=== PATIENT | female | born 1945 | race African-American/Black ===

== ENCOUNTER → 2017-01-28 | Outpatient (CLI) | payer MEDICARE, OTHER | LOC: HEART 5 08:45 | DX: I20.8 Other forms of angina pectoris (principal); R06.09 Other forms of dyspnea; I10 Essential (primary) hypertension; E78.5 Hyperlipidemia, unspecified | CPT/HCPCS: 78452; 93017; A9502; J2785 ==

== ENCOUNTER → 2017-03-27 | Outpatient (CLI) | payer MEDICARE, OTHER | LOC: KOH-I 11:56 | DX: F03.90 Unspecified dementia, unspecified severity, without behavioral disturbance, psychotic disturbance, mood disturbance, and anxiety (principal); R26.0 Ataxic gait; R51 Headache; G31.9 Degenerative disease of nervous system, unspecified | CPT/HCPCS: 70551 ==

== ENCOUNTER → 2020-12-23 | Outpatient (CLI) | payer MEDICARE, OTHER ==
[~2020-12-23] MED LIST: AZELASTINE SPRAY; AZELASTINE137 MCG/0.; CETIRIZINE HCL10 MG PO; CLONIDINE HCL0.1 MG PO; CYCLOBENZAPRINE5 MG PO; EFFEXOR XR 75 M75 MG PO; FISH OIL 1,0001 EAC3 PO; FLONASE 0.05% N16 GM; GABAPENTIN300 MG PO; LATANOPROST2.5 ML OP; LEXAPRO10 MG PO; LINZESS290 MCG PO; LIPITOR TAB 2020 MG PO; LISINOPRIL10 MG PO; MIRALAX17 GM PO; PAMELOR10 MG PO; PERCOCET 7.5-31 EACH PO; PRINIVIL10 MG PO; RABEPRAZOLE SOD20 MG PO; SYNTHROID75 MCG PO; TYLENOL W/CODEIN1 E1 PO; VENLAFAXINE HCL75 M2 PO; VITAMIN D32000 UNI1 PO; VITAMIN E400 UNI4 PO; ZANTAC150 MG PO
== END ==
LOC: KOH-I 15:39
DX: M25.561 Pain in right knee (principal); M25.562 Pain in left knee; M17.0 Bilateral primary osteoarthritis of knee
CPT/HCPCS: 73562

== ENCOUNTER → 2020-12-28 | Outpatient (CLI) | payer MEDICARE, OTHER | LOC: MAMO 09:54 | DX: Z12.31 Encounter for screening mammogram for malignant neoplasm of breast (principal); Z80.3 Family history of malignant neoplasm of breast | CPT/HCPCS: 77063; 77067 ==

== ENCOUNTER → 2021-01-03 | Day surgery (SDC) | payer MEDICARE, OTHER ==
[~2021-01-03] VITALS: Ht 157.5 cm; Wt 58.1 kg
== END | disposition home or self-care (01) ==
LOC: OR 07:45
DX: K21.00 Gastro-esophageal reflux disease with esophagitis, without bleeding (principal); K29.50 Unspecified chronic gastritis without bleeding; K22.8 Other specified diseases of esophagus; K31.9 Disease of stomach and duodenum, unspecified; K59.09 Other constipation; K58.9 Irritable bowel syndrome, unspecified; G62.9 Polyneuropathy, unspecified; E78.5 Hyperlipidemia, unspecified; I10 Essential (primary) hypertension; R73.03 Prediabetes; E66.3 Overweight; Z68.27 Body mass index [BMI] 27.0-27.9, adult; Z87.891 Personal history of nicotine dependence; Z79.899 Other long term (current) drug therapy; Z79.890 Hormone replacement therapy; Z86.010 Personal history of colon polyps; Z79.891 Long term (current) use of opiate analgesic; E78.00 Pure hypercholesterolemia, unspecified; Z90.710 Acquired absence of both cervix and uterus; Z98.890 Other specified postprocedural states
CPT/HCPCS: J2704; J7040

== ENCOUNTER → 2021-01-24 | Outpatient (CLI) | payer MEDICARE, OTHER | LOC: MRI 11:00 → KOH-I 13:45 | DX: M25.562 Pain in left knee (principal); M67.864 Other specified disorders of tendon, left knee; M25.462 Effusion, left knee | CPT/HCPCS: 73721 ==

== ENCOUNTER → 2021-03-17 | Outpatient (CLI) | payer MEDICARE, OTHER | LOC: KOH-I 13:27 | DX: R22.1 Localized swelling, mass and lump, neck (principal) | CPT/HCPCS: 76536 ==

== ENCOUNTER → 2021-04-18 | Outpatient (CLI) | payer MEDICARE, OTHER | LOC: CT 13:40 | DX: R22.1 Localized swelling, mass and lump, neck (principal); M47.812 Spondylosis without myelopathy or radiculopathy, cervical region | CPT/HCPCS: 36415; 70491; 82565; 84520; Q9963 ==

== ENCOUNTER → 2021-05-25 | Day surgery (SDC) | payer MEDICARE, OTHER | END | disposition home or self-care (01) | LOC: OR 06:46 | DX: R31.29 Other microscopic hematuria (principal); Z85.51 Personal history of malignant neoplasm of bladder; Z87.891 Personal history of nicotine dependence; M54.9 Dorsalgia, unspecified; M54.2 Cervicalgia; G89.29 Other chronic pain; Z88.8 Allergy status to other drugs, medicaments and biological substances; E78.5 Hyperlipidemia, unspecified; E03.9 Hypothyroidism, unspecified; Z08 Encounter for follow-up examination after completed treatment for malignant neoplasm; Z20.822 Contact with and (suspected) exposure to COVID-19 | CPT/HCPCS: J7040; U0003 ==

== ENCOUNTER → 2021-05-29 | Outpatient (CLI) | payer MEDICARE, OTHER | LOC: RAD 07:59 | DX: R09.89 Other specified symptoms and signs involving the circulatory and respiratory systems (principal) | CPT/HCPCS: 74230; 92611-GN ==

== ENCOUNTER → 2021-10-12 | Outpatient (CLI) | payer MEDICARE, OTHER | LOC: LAB 14:15 | DX: R22.2 Localized swelling, mass and lump, trunk (principal) | CPT/HCPCS: 71046 ==

== ENCOUNTER → 2021-10-18 | Outpatient (CLI) | payer MEDICARE, OTHER ==
[2021-10-18 13:18] LABS: BUN/CREATININE RATIO 19 (0-10)
== END ==
LOC: OPSV2 11:30
PROVIDERS: Anesthesiology
DX: Z01.812 Encounter for preprocedural laboratory examination (principal); M67.432 Ganglion, left wrist
CPT/HCPCS: 36415; 80048

== ENCOUNTER → 2021-11-03 | Outpatient (CLI) | payer MEDICARE, OTHER | LOC: CT 12:37 | DX: J98.6 Disorders of diaphragm (principal); R93.89 Abnormal findings on diagnostic imaging of other specified body structures | CPT/HCPCS: 71260; Q9967 ==

== ENCOUNTER → 2022-01-23 | Outpatient (CLI) | payer MEDICARE, OTHER | LOC: MAMO 10:54 | DX: Z12.31 Encounter for screening mammogram for malignant neoplasm of breast (principal) | CPT/HCPCS: 77063; 77067 ==

== ENCOUNTER → 2022-06-01 | Outpatient (CLI) | payer MEDICARE, OTHER ==
[~2022-06-01] VITALS: Ht 177.8 cm; Wt 72.1 kg
== END ==
LOC: RAD 07:27
DX: R10.30 Lower abdominal pain, unspecified (principal)
CPT/HCPCS: J3301; Q9967